=== PATIENT | female | born 1940 | race Caucasian/White ===

== ENCOUNTER 2016-12-28 17:27 | Emergency (ER) | payer MEDICARE ==
[2012-06-23 13:18] VITALS: BMI 29.9
[2016-12-28 18:24] LABS: APPEARANCE CLEAR (CLEAR); BILIRUBIN NEGATIVE (NEGATIVE); COLOR YELLOW (YELLOW); GLUCOSE NEGATIVE (NEGATIVE); KETONE NEGATIVE (NEGATIVE); LEUKOCYTE ESTERASE NEGATIVE (NEGATIVE); NITRITE NEGATIVE (NEGATIVE); PROTEIN NEGATIVE (NEGATIVE); UROBILINOGEN NORMAL (NORMAL)
[2016-12-28 18:56] LABS: BASOPHILS 0.3 % (0-2); EOSINOPHILS 1.9 % (0-7); HEMATOCRIT 39.6 % (36.0-48.0); IMMATURE GRANULOCYTES 0.2 % (0-5); LYMPHOCYTES 23.7 % (15-50); MCH 28.7 pg (26.0-34.0); MCHC 32.8 g/dL (31.0-37.0); MCV 87.4 fL (80.0-100.0); MEAN PLATELET VOLUME 11.6 fL (7.4-10.4); MONOCYTES 6.8 % (2-11); NEUTROPHILS 67.1 % (40-80); PLATELET COUNT 207 10x3/uL (130-400); RBC 4.53 10x6/uL (4.00-5.40); RDW 12.6 % (11.5-14.5); WBC 8.6 10x3/uL (4.8-10.8)
[2016-12-28 19:14] LABS: ALBUMIN 3.7 g/dL (3.4-5.0); ALKALINE PHOSPHATASE 121 U/L (46-116); ALT (SGPT) 27 U/L (10-68); BILIRUBIN - TOTAL 0.56 mg/dL (0.2-1.3); CALC OSMOLALITY 282 mosm/kg (275-300); CALCIUM 8.5 mg/dL (8.5-10.1); CARBON DIOXIDE 28.6 mmol/L (21.0-32.0); CHLORIDE - SERUM 104 mmol/L (98-107); CREATININE - SERUM 1.2 mg/dL (0.6-1.3); PROTEIN - SERUM 7.3 g/dL (6.4-8.2); SODIUM 141 mmol/L (136-145); UREA NITROGEN 18 mg/dL (7-18); eGFR NON AFRICAN AMERICAN 46 mL/min (90-120)
[2016-12-28 19:18] LABS: GLUCOSE 105 mg/dL (74-106)
[2016-12-28 19:27] LABS: CKMB 0.6 U/L (0.0-3.6); CREATINE KINASE 69 UL (21-215); TROPONIN-I < 0.017 ng/mL (0.000-0.060)
== END 2016-12-28 22:25 | disposition home or self-care (01) ==
LOC: D.ER 17:27
PROVIDERS: Nurse Practitioner Acute Care
DX: R42 Dizziness and giddiness (principal); F41.9 Anxiety disorder, unspecified; I25.10 Atherosclerotic heart disease of native coronary artery without angina pectoris; I10 Essential (primary) hypertension; I45.4 Nonspecific intraventricular block

== ENCOUNTER 2017-03-11 07:35 | Outpatient (CLI) | payer MEDICARE ==
[~2017-03-11] VITALS: Ht 165.1 cm; Wt 85.9 kg
--- NOTE | ~2017-03-11 | HEMODYNAMI ---
PATIENT:AD ELDER MEDICAL RECORD: [id number] : 40 LOCATION:[facility] ADMISSION DATE: 03/11/17 Generatedon:03/11/201710:48 Patient name: AD ELDER Patient #: [id number] SSN: : 1940 Date of study: 03/11/2017 Page: Of Hemodynamic Procedure Report Patient Data Patient Demographics Procedure consent was obtained First Name: AD Gender: Female Last Name: JERROD : 1940 [facility] Initial: KODI Age: 76 year(s) Patient #: [id number] Race: Unknown Additional ID: [id number] Contact details Address: [address] [place] [address] State: [place] City: [facility] Zip code: [address] Past Medical History Allergies Allergen Reaction Date Comments Reported Morphine 03/11/2017 Admission Admission Data Admission Date: 03/11/2017 Admission Time: 7:35 Lab Results Lab Result Date: 03/11/2017 Lab Result Time: 0:00 Biochemistry Name Units Result Min Max BUN mg/dl 18 --(---*)-- 7 18 Creatinine mg/dl 1.4 --(----)*- 0.6 1.3 CBC Name Units Result Min Max Hemoglobin g/dl 12 *-(----)-- 13.5 17.5 Procedure Procedure Types Cath Procedure Diagnostic Procedure [facility] w/Coronaries PCI Procedure Coronary Stent Initial Miscellaneous Procedures Moderate Sedation up to 30 minutes Procedure Description Procedure Date Procedure Date: 03/11/2017 Procedure Start Time: 10:20 Procedure End Time: 10:44 Procedure Staff Name Function Stewart Elise MD Performing Physician Theresa Perez RN Nurse Saud Kaur RT Monitor Gaurav Archibald RT Scrub Procedure Data Cath Procedure Fluoroscopy Diagnostic fluoroscopy Total fluoroscopy Time: 4.3 time: 4.3 min min Diagnostic fluoroscopy Total fluoroscopy dose: 594 dose: 594 mGy mGy Contrast Material Contrast Material Type Amount (ml) Isovue 300 99 Entry Location Entry Primary Successful Side Size Upsize Upsize Entry Closure Rosa ccessful Closure Location (Fr) 1 (Fr) 2 (Fr) Remarks Device Remarks Radial Right 6 Fr Mechanical artery Short Compression Diagnostic catheters Device Type Used For End Catheter Placement Diagnostic Terumo 5Fr LV Angiography Tilton 110cm catheter Diagnostic Infinity 5Fr Right Coronary AR MOD Catheter Angiography Procedure Complications No complications Procedure Medications Medication Administration Route Dosage Oxygen NC 2 l/min Heparin Flush Bag added to field 2 bags (1000units/500ml NS) Lidocaine 2% added to field 20 Radial Cocktail added to field 1 syringe (Verapomil 2mg/Nitro 400mcg/Heparin 1500units) Versed I.V. 1 mg Fentanyl I.V. 50 mcg Radial Cocktail I.A. 1 syringe (Verapomil 2mg/Nitro 400mcg/Heparin 1500units) Versed I.V. 0.5 mg Fentanyl I.V. 25 mcg Heparin Bolus I.V. 8500 units Versed I.V. 0.5 mg Fentanyl I.V. 25 mcg Brilinta P.O. 180 mg Hemodynamics Rest HGB: 12 (g/dl) Heart Rate: 67 (bpm) Pressure Samples Time Site Value (mmHg) Purpose Heart Use Rate(bpm) 10:23 LV 71/-7,-6 EDP 93 10:23 LV 78/-1,0 Snapshot 114 10:24 AO 94/47(65) Pullback 74 10:24 LV 116/-6,7 Pullback 74 Gradients Valve Time Site 1 Site 2 Mean SEP/DFP Peak To Heart Use (mmHg) (sec/min) Peak Rate (mmHg) (bpm) Aortic 10:24 LV AO 12 21 22 74 116/-6,7 94/47(65) Calculations Valve P-P Mean Valve Index Valve Source Name Gradient Area Flow (cm2) Aortic 22 12 22 12 Snapshots Pre Cath Intra NCS Post Cath Vital Signs Time Heart Resp SPO2 etCO2 [id number] NIBP (mmHg) Rhythm Pain Sedation Rate (ipm) (%) (mmHg) (mmHg) Status Level (bpm) 10:03:24 65 15 95 0 0 133/68(115) NSR 0 (11) 10(A) , No pain 10:07:44 63 16 98 0 0 134/66(108) NSR 0 (11) 10(A) , No pain 10:12:05 65 18 96 0 0 129/69(109) NSR 0 (11) 10(A) , No pain 10:16:20 64 16 97 0 0 116/62(98) NSR 0 (11) 10(A) , No pain 10:20:30 64 16 96 0 0 108/59(85) NSR 0 (11) 9(A) , No pain 10:24:38 72 16 95 0 0 105/57(69) NSR 0 (11) 9(A) , No pain 10:28:50 74 20 96 0 0 105/54(74) NSR 0 (11) 9(A) , No pain 10:33:02 72 22 95 0 0 104/56(81) NSR 0 (11) 9(A) , No pain 10:37:14 72 18 96 0 0 102/56(75) NSR 0 (11) 10(A) , No pain 10:41:07 76 16 96 0 0 114/65(91) NSR 0 (11) 10(A) , No pain Medications Time Medication Route Dose Verified Delivered Reason Note s Effectiveness by by 10:05:31 Oxygen NC 2 l/min Stewart Theresa Per physician Jitendra Perez RN 10:05:39 Heparin Flush added 2 bags Stewart Stewart used for Bag to Jitendra Elise MD procedure (1000units/500ml field NS) 10:05:48 Lidocaine 2% added 20ml Stewart Stewart used for to vial Jitendra Elise MD procedure field 10:05:56 Radial Cocktail added 1 Stewart Stewart used for (Verapomil to syringe Jitendra Elise MD procedure 2mg/Nitro field 400mcg/Heparin 1500units) 10:13:01 Versed I.V. 1 mg Stewart Theresa for sedation Jitendra Perez RN 10:13:07 Fentanyl I.V. 50 mcg Stewart Theresa for sedation Jitendra Perez RN 10:16:00 Versed I.V. 0.5 mg Stewart Stewart for sedation Jitendra Elise MD 10:16:09 Fentanyl I.V. 25 mcg Stewart Stewart for sedation Jitendra Elise MD 10:19:26 Versed I.V. 0.5 mg Stewart Theresa for sedation Jitendra Perez RN 10:19:33 Fentanyl I.V. 25 mcg Stewart Theresa for sedation Jitendra Perez RN 10:22:38 Radial Cocktail I.A. 1 Stewart Stewart for (Verapomil syringe Jitendra Elise MD vasodilation 2mg/Nitro 400mcg/Heparin 1500units) 10:32:55 Heparin Bolus I.V. 8500 Stewart Theresa for dose units Jitendra Perez RN anticoagulation verified with dr elise 10:40:03 Brilinta P.O. 180 mg Stewart Theresa for Jitendra Perez RN antiplatelet therapy Procedure Log Time Note 9:35:26 Gaurav Archibald RT(R) sent for patient. Start room use. 9:44:31 Time tracking: Regular hours 9:44:35 Plan of Care:Hemodynamics will remain stable., Cardiac rhythm will remain stable., Comfort level will be maintained., Respiratory function will remain adequate., Patient/ family verbilizes understanding of procedure., Procedure tolerated without complication., Recovers from procedure without complications.. 9:56:18 Patient received from Pre/Post Procedure Room to CCL 1 Alert and oriented. Tansferred to table in Supine position. 9:56:20 Warm blankets applied, and ngozi hugger turned on for patient comfort. 9:56:20 Correct patient and procedure confirmed by team. 9:56:21 Signed procedure consent form obtained from patient. 9:56:22 ECG and BP/O2 sat monitors applied to patient. 10:02:11 Vital chart was started 10:02:13 Baseline sample Acquired. 10:02:20 Rhythm: sinus rhythm 10:02:22 Full Disclosure recording started 10:05:31 Oxygen 2 l/min NC was administered by Theresa Perez RN; Per physician; 10:05:39 Heparin Flush Bag (1000units/500ml NS) 2 bags added to field was administered by Stewart Elise MD; used for procedure; 10:05:48 Lidocaine 2% 20ml vial added to field was administered by Stewart Elise MD; used for procedure; 10:05:56 Radial Cocktail (Verapomil 2mg/Nitro 400mcg/Heparin 1500units) 1 syringe added to field was administered by Stewart Elise MD; used for procedure; 10:10:04 H&P Date Dictated: 03/05/2017 Within 30 days and on chart.. 10:10:06 Pre-procedure instructions explained to patient. 10:10:06 Pre-op teaching completed and patient verbalized understanding. 10:10:08 Family in waiting room. 10:10:09 Patient NPO since Midnight. 10:10:36 Patient allergic to Morphine 10:10:41 Is the patient allergic to Iodine/contrast media? No. 10:10:43 Is patient on blood thinner?No 10:10:44 Patient diabetic? No. 10:10:46 ----Pre-sedation anethsthesia assessment.---- 10:10:48 Previous problem with sedation/anesthesia? No ? 10:10:50 Snore? Yes 10:10:54 Sleep apnea? Yes 10:10:57 Deviated septum? No 10:11:00 Opens mouth fully? Yes 10:11:01 Sticks out tongue? Yes 10:11:03 Airway obstruction? No ? 10:11:05 Dentures? No ? 10:11:08 Pre procedure: right dorsailis pedis pulse 1+ Palpable, but thready & weak; easily obliterated 10:11:12 Modified Sumit's test Ulnar > 7 seconds. 10:11:15 Patient pain scale 0/10 ?. 10:11:20 IV patent on arrival in left antecubital with 0.9% NaCl at 10ml/hr. 10:12:04 Lab Result : BUN 18 mg/dl 10:12:04 Lab Result : Hemoglobin 12 g/dl 10:12:04 Lab Result : Creatinine 1.4 mg/dl 10:12:19 Lab results completed and on chart. 10:12:23 Right Radial & Right Groin area was prepped with chlora-prep and draped in sterile fashion 10:12:24 Alarms reviewed by R. N. 10:12:24 Sharps counted by scrub and verified by R.N. 10:12:31 --------ALL STOP TIME OUT------ 10:12:31 Final Timeout: patient, procedure, and site verified with staff and physician. All members of the team are in agreement. 10:12:41 Right Radial & Right Groin site verified by team. 10:12:44 Physical assessment completed. ASA score P 2 - A patient with mild systemic disease as per Stewart Elise MD. 10:12:47 Sedation plan: IV Moderate Sedation Versed, Fentanyl 10:13: Versed 1 mg I.V. was administered by Theresa Perez RN; for sedation; 10:13:07 Fentanyl 50 mcg I.V. was administered by Theresa Perez RN; for sedation; 10::18 Use device set Radial Dx 10:: Acist Syringe opened to sterile field. 10:: Medline Cath Pack opened to sterile field. 10:: Bag Decanter opened to sterile field. 10:: Terumo 6Fr Slender Glidesheath opened to sterile field. 10:: St Lisandro 260cm J .035 wire opened to sterile field. 10:: Acist Hand Control opened to sterile field. 10:: Acist Manifold opened to sterile field. 10:: Tegaderm 4 x 4 opened to sterile field. 10:: MBrace Wrist Support opened to sterile field. 10:16:00 Versed 0.5 mg I.V. was administered by Stewart Elise MD; for sedation; 10:16:09 Fentanyl 25 mcg I.V. was administered by Stewart Elise MD; for sedation; 10:19:26 Versed 0.5 mg I.V. was administered by Theresa Perez RN; for sedation; 10:19:33 Fentanyl 25 mcg I.V. was administered by Theresa Perez RN; for sedation; 10:19:51 Procedure started. 10:20:01 Local anesthetic to right radial artery with Lidocaine 2% by Stewart Elise MD.INITIAL ACCESS ONLY 10:20:08 A 6 Fr Short sheath was inserted into the Right Radial artery 10:22:21 Zero performed for pressure channel P1 10:22:38 Radial Cocktail (Verapomil 2mg/Nitro 400mcg/Heparin 1500units) 1 syringe I.A. was administered by Stewart Elise MD; for vasodilation; 10:22:57 A Diagnostic Terumo 5Fr Tilton 110cm catheter was advanced over the wire and used for LV Angiography. 10:23:01 LV angiography performed. 10:23:02 LV gram done using UGALDE 10:23:04 LV hemodynamics recorded. 10:23:07 Injector settings: Ml/sec: 7, Volume: 15, 10:24:12 EF : 50 % 10:24:28 LCA angiography performed. 10::57 Catheter removed. 10:27:15 A Diagnostic Infinity 5Fr AR MOD Catheter was advanced over the wire and used for Right Coronary Angiography. 10:27:18 RCA angiography performed. 10:29:01 Catheter removed. 10:30:03 ACC PCI Site: dRCA has 80% stenosis. 10:30:05 ACC Pre-intervention ESTELA Flow is 3. 10:30:51 Thompson SCItronic Launcher 6Fr AR 2.0 guide catheter opened to sterile field. 10:30:51 Panasas BasixCompak Inflation Kit opened to sterile field. 10:30:51 High Pressure Extension Tubing (Jitendra) opened to sterile field. 10:30:52 gauzzW Napoleon 2 J-tip 300cm 0.014 guide wir opened to sterile field. 10:31:00 6 Fr AR 2 guide catheter was inserted over the wire 10:32:55 Heparin Bolus 8500 units I.V. was administered by Theresa Perez RN; for anticoagulation; dose verified with dr elise 10:36:26 [employer] TR Band Standard opened to sterile field. 10:36:38 AirsynergyW wire advanced. 10:37:12 Inflation Number: 1 A Thompson SCItronic Integrity 2.75 X 26 stent was prepped and advanced across the Dist RCA. The stent was deployed at 16 AMANDA for 0:16 (min:sec). 10:37:55 Stent catheter was removed intact over wire. 10:38:02 Wire removed. 10:38:03 Guide catheter removed. 10:38:12 Sheath removed intact; hemostasis achieved with Mechanical Compression to the Right Radial artery. 10:38:15 Procedure ended.(Physican Out) 10:38:23 Fluoroscopy time 04.30 minutes. 10:38:28 Flurop Dose total: 594 10:38:28 Fluoroscopy dose: 594 mGy 10:38:31 Contrast amount:Isovue 300 99ml. 10:38:33 Sharps counted by scrub and verified by R.N. 10:38:34 TR band inflated with 14cc of air. 10:39:12 Insertion/operative site no bleeding no hematoma. 10:39:20 Post right radial artery:stable 10:39:21 Post Procedure Pulses reassessed and unchanged 10:39:26 Post procedure rhythm: sinus rhythm 10:39:28 Post procedure instruction explained to patient.Patient verbalizes understanding. 10:40:03 Brilinta 180 mg P.O. was administered by Theresa Perez RN; for antiplatelet therapy; 10:41:13 Procedure type changed to Cath procedure, Diagnostic procedure, LHC, LHC w/Coronaries, PCI procedure, Coronary Stent Initial, Miscellaneous Procedures, Moderate Sedation up to 30 minutes 10:41:17 Procedure and supply charges have been captured, reviewed, submitted and are correct. 10:41:45 Procedure Complication : No complications 10:44:10 Vital chart was stopped 10:44:10 See physician's report for complete and final results. 10:44:13 Report given to Pre/Post Procedure Room. 10:44:17 Patient transfered to Pre/Post Procedure Room with Stretcher. 10:44:19 Procedure ended. 10:44:19 Full Disclosure recording stopped 10:44:26 ACC-PCI Only Patient was given prescriptions, or instructed by Stewart Elise MD to start/continue the following medications upon discharge: Brilinta 10:44:28 End room use (Document Last) Intervention Summary Intervention Notes Time ActionType Lesion and Equipment Action# Pressure Duration Attributes Used 10:37:12 Place stent Dist RCA Medtronic 1 16 00:16 Integrity 2.75 X 26 stent Device Usage Item Name Manufacture Quantity Catalog Hospital Part Current Minimal Lot# / Number Charge Number Stock Stock Serial# Code Acist Acist 1 [id number] 568214 277882 653850 20 Syringe Medical Systems Inc Medline Cardinal 1 [id number] 835704 17641 115974 5 Cath Pack Health Bag Microtek 1 197110 06545 227569 5 Rising Tide Innovations Inc. Terumo 6Fr Terumo 1 [id number] 375035 386116 760019 [address] Lis[address] St Lisandro 1 245589 509816 374173 597261 30 260cm J .035 wire Acist Hand Acist 1 03376 214285 100771 366492 5 Abzena Medical Systems Inc Acist Acist 1 21860 373172 001873 524933 5 Ripple Commerce Medical Systems Inc Tegaderm 4 3M 1 [id number] 752868 758322 809837 5 x 4 MBrace Advanced 1 140-0250-00 946035 44118 537622 5 Wrist Vascular Support Dynamics Diagnostic Terumo 1 13-7497 848330 260310 130113 5 Terumo 5Fr Tilton 110cm catheter Diagnostic Cardinal 1 [id number] 732530 936443 010512 15 Infinity Health 5Fr AR MOD Catheter Medtronic Medtronic 1 [id number] 998030 79175 263125 1 Launcher 6Fr AR 2.0 guide catheter Merit Merit 1 [id number] 103999 004073 369351 15 [employer] Medical Inflation Kit High Merit 1 [id number] 852785 54227 374750 10 Pressure Medical Extension Tubing (Elise) Vasquez BMW Vasquez 1 [id number] 457371 792036 499101 5 Napoleon 2 Vascular J-tip 300cm 0.014 guide wir Terumo TR Terumo 1 [id number] 578506 207485 153195 40 Band Standard Medtronic Medtronic 1 [id number] 560340 358260 5 [id number] Integrity 2.75 X 26 stent Signature Audit [place] Stage Time Signature Unsigned Intra-Procedure 03/11/2017 Saud Kaur 10:48:24 AM RT(R) Signatures Monitor : Saud Kaur RT Signature : Date : Time : [id number] [place] [address]
[2017-03-11] MEDS ORDERED: LIPITOR20 MG PO (08:07)
[2017-03-11] MEDS ORDERED: METOPROLOL TART25 MG (08:11)
[2017-03-11] MEDS ORDERED: ISORDIL5 MG PO (08:11)
[2017-03-11] MEDS ORDERED: NORVASC5 MG PO (08:11)
[2017-03-11] MEDS ORDERED: PROBIOTIC1 EAC1 PO (08:12)
[2017-03-11] MEDS ORDERED: BAYER CHEWABLE81 MG PO (08:12)
[2017-03-11] MEDS ORDERED: OMEPRAZOLE20 M1 PO (08:12)
[2017-03-11] MEDS ORDERED: ATIVAN1 MG PO (08:13)
[2017-03-11] MEDS ORDERED: CYMBALTA30 MG PO (08:13)
[2017-03-11 08:15] VITALS: BP 133/68; Ht 165.1 cm; Wt 85.9 kg
[2017-03-11 08:28] LABS: BASOPHILS 0.3 % (0-2); EOSINOPHILS 2.6 % (0-7); HEMATOCRIT 36.6 % (36.0-48.0); IMMATURE GRANULOCYTES 0.3 % (0-5); LYMPHOCYTES 22.9 % (15-50); MCH 28.9 pg (26.0-34.0); MCHC 32.8 g/dL (31.0-37.0); MCV 88.2 fL (80.0-100.0); MONOCYTES 7.5 % (2-11); NEUTROPHILS 66.4 % (40-80); PLATELET COUNT 194 10x3/uL (130-400); RBC 4.15 10x6/uL (4.00-5.40); WBC 7.3 10x3/uL (4.8-10.8)
[2017-03-11 08:46] LABS: ANION GAP 11.3 mmol/L (8-16); CALCIUM 8.4 mg/dL (8.5-10.1); CARBON DIOXIDE 26.8 mmol/L (21.0-32.0); CREATININE - SERUM 1.4 mg/dL (0.6-1.3); POTASSIUM - SERUM 4.1 mmol/L (3.5-5.1)
--- NOTE | 2017-03-11 11:04 | NUR ---
1055 RECEIVED PT FROM PAN WASHER, PT IS SLEEPING, AWAKENS TO VERBAL STIMULI. DENIES ANY C/O. TR ABDN CDI, NO BLEEDING OR HEMATOMA NOTED. FINGERS WARM TO TOUCH. SINUS RHYTHM, DENIES ANY C/O CHEST DISCOMFORT. CALL LIGHT IN REACH, PT INSTRUCTED TO CALL FOR NEEDS.
[2017-03-11] MEDS ORDERED: BRILINTA90 MG PO (11:26)
--- NOTE | 2017-03-11 11:30 | NUR ---
1110 PT DENIES ANY C/O. SINUS RHYTHM, VSS. TR BAND CDI, NO BLEEDING OR HEMATOMA NOTED. CALL LIGHT IN REACH.
--- NOTE | 2017-03-11 12:25 | NUR ---
RESTING QUIETLY WITH EYES CLOSED NO DISTRESS NOTED. VSS WITH CHEST PAIN DENIED. TR BAND TO R/WRIST CDI NO BLEEDING NO HEMATOMA NOTED.
--- NOTE | 2017-03-11 12:48 | NUR ---
1245 TR BAND CDI, NO BLEEDING OR HEMATOMA NOTED. FINGERS WARM TO TOUCH, PT DENIES [place] DEFICIT. VSS. DAUGHTER AT BEDSIDE.
--- NOTE | 2017-03-11 13:40 | NUR ---
1340 PT DENIES ANY C/O. TR BAND CDI, NO BLEEDING OR HEMATOMA NOTED. DAUGHTER AT BEDSIDE.
--- NOTE | 2017-03-11 14:25 | NUR ---
1425 TR BAND DEFLATION UNDERWAY, NO BLEEDING OR HEMATOMA NOTED AT SITE. PT DENIES ANY C/O. DAUGHTER AT BEDSIDE.
--- NOTE | 2017-03-11 15:13 | NUR ---
1500 TR BAND REMOVED, NO BLEEDING OR HEMATOMA NOTED AT SITE. IV DC'D WTIH CATH INTACT. PT'S DAUGHTER ASSISTING HER WITH DRESSING FOR DC TO HOME.
--- NOTE | 2017-03-11 16:06 | NUR ---
1515 PT HAS AMBULATED TO THE BATHROOM AND VOIDED QS. DENIES ANY C/O. DRESSING TO CATH SITE REMAINS CDI, NO BLEEDING OR HEMATOMA NOTED. DC INSTRUCTIONS REVIEWED WITH PT AND DAUGHTER. STENT CARD, HOMECARE BOOKLET AND BRILINTA PRESCRIPTION TO PATIENT. PT ESCORTED TO PRIVATE AUTO VIA WC BY STAFF WITH DAUGHTER DRIVING HER HOME.
== END 2017-03-11 15:15 | disposition home or self-care (01) ==
LOC: D.CATH 07:35
PROVIDERS: Internal Medicine Cardiovascular Disease
DX: I25.10 Atherosclerotic heart disease of native coronary artery without angina pectoris (principal); I10 Essential (primary) hypertension; E78.5 Hyperlipidemia, unspecified; Z01.812 Encounter for preprocedural laboratory examination

== ENCOUNTER 2017-03-12 23:10 | Emergency (ER) | payer MEDICARE ==
[2017-03-11 08:15] VITALS: BMI 31.5
[~2017-03-12 23:10] MED LIST: ATIVAN1 MG PO; BAYER CHEWABLE81 MG PO; BRILINTA90 MG PO; CYMBALTA30 MG PO; ISORDIL5 MG PO; LIPITOR20 MG PO; METOPROLOL TART25 MG; NORVASC5 MG PO; OMEPRAZOLE20 M1 PO; PROBIOTIC1 EAC1 PO
== END 2017-03-12 23:59 | disposition home or self-care (01) ==
LOC: D.ER 23:10
DX: Z03.89 Encounter for observation for other suspected diseases and conditions ruled out (principal); I10 Essential (primary) hypertension; I25.10 Atherosclerotic heart disease of native coronary artery without angina pectoris

== ENCOUNTER 2018-02-18 22:32 | Emergency (ER) | payer MEDICARE ==
[~2018-02-18] VITALS: Ht 165.1 cm; Wt 90.9 kg
[2018-02-18 23:00] VITALS: BP 141/66; Ht 165.1 cm; Wt 90.9 kg
== END 2018-02-19 00:35 | disposition left against medical advice (07) ==
LOC: D.ER 22:32
DX: S89.91XA Unspecified injury of right lower leg, initial encounter (principal); V19.3XXA Pedal cyclist (driver) (passenger) injured in unspecified nontraffic accident, initial encounter; Y93.55 Activity, bike riding; Y92.410 Unspecified street and highway as the place of occurrence of the external cause

== ENCOUNTER → 2018-02-22 13:40 | Outpatient (CLI) | payer MEDICARE ==
[2018-02-18 23:00] VITALS: BMI 33.3
== END | disposition home or self-care (01) ==
LOC: D.LAB 13:00
DX: S09.8XXA Other specified injuries of head, initial encounter (principal); X58.XXXA Exposure to other specified factors, initial encounter; B96.81 Helicobacter pylori [H. pylori] as the cause of diseases classified elsewhere

== ENCOUNTER → 2019-06-22 09:07 | Outpatient (CLI) | payer MEDICARE ==
[2018-02-18 23:00] VITALS: BMI 33.3
[~2019-06-22 09:07] MED LIST changes: +MULTI-DAY VITAM1 TAB PO; +OMEGA-3100 MG PO; +RANITIDINE HCL150 M1 PO; +VITAMIN D31000 UNIT PO
== END | disposition home or self-care (01) ==
LOC: D.HCCARDIO 09:07
PROVIDERS: ATTEND Internal Medicine Cardiovascular Disease
DX: I25.10 Atherosclerotic heart disease of native coronary artery without angina pectoris (principal)

== ENCOUNTER 2019-07-03 11:37 | Outpatient (CLI) | payer MEDICARE ==
[~2019-07-03] VITALS: Ht 165.1 cm; Wt 78.6 kg
--- NOTE | ~2019-07-03 | HEMODYNAMI ---
PATIENT:AD ELDER MEDICAL RECORD: [id number] : 40 LOCATION:[facility] ADMISSION DATE: 07/03/19 Generatedon:07/03/201915:26 Patient name: AD ELDER Patient #: [id number] SSN: [id number] : 1940 Date of study: 07/03/2019 Page: Of Hemodynamic Procedure Report Patient Data Patient Demographics Procedure consent was obtained First Name: AD Gender: Female Last Name: JERROD : 1940 Middle Initial: KODI Age: 78 year(s) Patient #: [id number] Race: SSN: [id number] Additional ID: [id number] Contact details Address: [address] [place] [address] State: [place] City: [facility] [place] Zip code: [address] Past Medical History Allergies Allergen Reaction Date Comments Reported Morphine 03/11/2017 Admission Admission Data Admission Date: 07/03/2019 Admission Time: 11:37 Arrival Date: 07/03/2019 Arrival Time: 0:00 Admit Source: Other Insurance Payor: Medicare [facility] #: [id number] Height (in.): 64.96 BSA: 1.86 (m2) Height (cm.): 165 BMI: 29.02 (kg/m2) Weight (lbs.): 174.17 Weight (kg.): 79 Lab Results Lab Result Date: 07/03/2019 Lab Result Time: 0:00 Biochemistry Name Units Result Min Max BUN mg/dl 28 --(----)-* 7 18 Creatinine mg/dl 1.5 --(----)-* 0.6 1.3 eGFR ml/min 35 *-(----)-- 90 120 NONAFRICAN CBC Name Units Result Min Max Hemoglobin g/dl 13.2 -*(----)-- 13.5 17.5 Procedure Procedure Types Cath Procedure Diagnostic Procedure LHC LH w/Coronaries Sedation Charges Moderate Sedation up to 15 minutes Procedure Description Procedure Date Procedure Date: 07/03/2019 Procedure Start Time: 15:05 Procedure End Time: 15:22 Procedure Staff Name Function Stewart Ham MD Performing Physician Sharmaine Vazquez RT Monitor Anabel Villa RT Monitor Valeriy Parikh RN Nurse Anita Orr RT Scrub Indication CAD Procedure Data Cath Procedure Fluoroscopy Diagnostic fluoroscopy Total fluoroscopy Time: 2.9 time: 2.9 min min Diagnostic fluoroscopy Total fluoroscopy dose: 457 dose: 457 mGy mGy Contrast Material Contrast Material Type Amount (ml) Isovue 300 63 Entry Location Entry Primary Successful Side Size Upsize Upsize Entry Closure Rosa ccessful Closure Location (Fr) 1 (Fr) 2 (Fr) Remarks Device Remarks Radial Right 6 Fr Mechanical artery Short Compression Estimated blood loss: 5 ml Diagnostic catheters Device Type Used For End Catheter Placement DIAGNOSTIC [place] 110cm 5 Procedure Fr catheter ([id number]) DIAGNOSTIC AR1 MOD 5Fr Procedure catheter ([id number]) Procedure Complications No complications Procedure Medications Medication Administration Route Dosage 0.9% NaCl I.V. 100 ml/hr Oxygen etCO2 Nasal cannula 2 l/min Heparin Flush Bag added to field 2 bags (1000units/500ml NS) Lidocaine 2% added to field 20 Radial Cocktail added to field 1 syringe (Verapamil 2mg/Nitro 400mcg/Heparin 1500units) Versed I.V. 1 mg Fentanyl I.V. 25 mcg Fentanyl I.V. 25 mcg Radial Cocktail I.A. 1 syringe (Verapamil 2mg/Nitro 400mcg/Heparin 1500units) Benadryl I.V. 50 mg Hemodynamics Rest BSA: 1.86 (m2) HGB: 13.2 (g/dl) O2 Consumption: Estimated: 160.52 (ml/min) O2 Co nsumption indexed: Estimated:86.3 (ml/min/m) Heart Rate: 59 (bpm) Pressure Samples Time Site Value (mmHg) Purpose Heart Use Rate(bpm) 15:09 LV 115/0,7 Snapshot 87 15:10 AO 113/48(75) Pullback 79 15:10 LV 120/-7,9 Pullback 79 Gradients Valve Time Site 1 Site 2 Mean SEP/DFP Peak To Heart Use (mmHg) (sec/min) Peak Rate (mmHg) (bpm) Aortic 15:10 LV AO 9 17 7 79 120/-7,9 113/48(75) Calculations Valve P-P Mean Valve Index Valve Source Name Gradient Area Flow (cm2) Aortic 7 9 7 9 Snapshots Pre Cath Intra NCS Post Cath Vital Signs Time Heart Resp SPO2 etCO2 NIBP (mmHg) Rhythm Pain Sedation Rate (ipm) (%) (mmHg) Status Level (bpm) 14:53:58 59 14 100 29.9 154/67(129) NSR 0 (11) 10(A) , No pain 14:58:18 67 14 100 21.7 155/79(125) NSR 0 (11) 10(A) , No pain 15:02:40 68 13 100 21.7 142/70(117) NSR 0 (11) 10(A) , No pain 15:07:00 70 15 100 33.7 138/73(114) NSR 0 (11) 10(A) , No pain 15:11:14 73 15 99 32.9 119/62(98) NSR 0 (11) 9(A) , No pain 15:15:30 76 18 97 37.4 113/61(84) NSR 0 (11) 10(A) , No pain 15:19:44 72 15 99 26.2 117/60(99) NSR 0 (11) 10(A) , No pain Medications Time Medication Route Dose Verified Delivered Reason Notes Effectiveness by by 14:55:50 0.9% NaCl I.V. 100 Valeriy Valeriy Per ml/hr Kati Parikh physician RN RN 14:56:00 Oxygen etCO2 2 l/min Valeriy Valeriy for low 02 Nasal Lorigan Lorigan sats cannula RN RN 14:56:12 Heparin Flush added 2 bags Valeriy Valeriy used for Bag to Lorigan Loranne procedure (1000units/500ml field RN RN NS) 14:56:23 Lidocaine 2% added 20ml Valeriy Valeriy for local to vial Lorigan Lorigan anesthetic RN RN 14:56:34 Radial Cocktail added 1 Valeriy Valeriy used for (Verapamil to syringe Lorigan Lorigan procedure 2mg/Nitro RN RN 400mcg/Heparin 1500units) 15:00:32 Benadryl I.V. 50 mg Valeriy Valeriy Per Kati Parikh physician RN RN 15:02:44 Versed I.V. 1 mg Valeriy Valeriy for sedation Kati Parikh RN RN 15:02:53 Fentanyl I.V. 25 mcg Valeriy Valeriy for sedation Kati Parikh RN RN 15:05:29 Fentanyl I.V. 25 mcg Valeriy Valeriy for sedation Kati Parikh RN RN 15:08:49 Radial Cocktail I.A. 1 Valeriy Stewart for (Verapamil syringe Kati Ham MD vasodilation 2mg/Nitro RN 400mcg/Heparin 1500units) Procedure Log Time Note 14:06:35 Informed consent obtained and on chart 14:07:34 Indication : CAD 14:11:13 Lab Result : Hemoglobin 13.2 g/dl 14:11:13 Lab Result : eGFR NONAFRICAN 35 ml/min 14:11:13 Lab Result : BUN 28 mg/dl 14:11:13 Lab Result : Creatinine 1.5 mg/dl 14:14:09 Arrival Date: 07/03/2019 12:00:00 AM 14:14:31 Admit Source: Other 14:14:37 Insurance Payor : Medicare 14:14:43 Patient Height : 64.96 inches 14:14:49 Patient Weight : 174.17 lbs 14:17:56 Risk of Mortality: .1 14:18:03 Risk of blood transfusion: 0.8 14:18:09 Risk of [place]: 1.6 14:18:22 ACC Patient presents with Stable Angina CCS Anginal Class 2--Slight limitation of ordinary activity. 14:20:17 ACCPatient has been prescribed/administered the following anti-anginal medication within the last 2 weeks: None 14:35:29 Procedure Status Elective Heart Cath (OP). 14:35:33 Valeriy Parikh RN sent for patient. Start room use. 14:35:36 Time tracking: Regular hours (M-F 7:00 - 5:00) 14:35:44 Plan of Care:Hemodynamics will remain stable., Cardiac rhythm will remain stable., Comfort level will be maintained., Respiratory function will remain adequate., Patient/ family verbilizes understanding of procedure., Procedure tolerated without complication., Recovers from procedure without complications.. 14:41:13 Patient received from Pre/Post Procedure Room to CCL 1 Alert and oriented. Tansferred to table in Supine position. 14:52:43 Warm blankets applied, and ngozi hugger turned on for patient comfort. 14:52:43 Correct patient and procedure confirmed by team. 14:52:44 ECG and BP/O2 sat monitors applied to patient. 14:52:44 Vital chart was started 14:52:47 Baseline sample Acquired. 14:52:51 Rhythm: sinus rhythm 14:52:53 Full Disclosure recording started 14:53:03 H&P Date Dictated: 07/03/2019 Within 30 days and on chart., H&P Addendum completed by physician on day of procedure. (MUST COMPLETE FOR ALL OUTPATIENTS). 14:53:09 Pre-procedure instructions explained to patient. 14:53:09 Pre-op teaching completed and patient verbalized understanding. 14:53:11 Family in patients room. 14:53:13 Patient NPO since Midnight. 14:53:15 Is the patient allergic to Iodine/contrast media? No. 14:53:16 Was the patient premedicated? Yes 14:53:17 Is patient on blood thinner?No 14:53:19 Patient diabetic? No. 14:53:22 Previous problem with sedation/anesthesia? No ? 14:53:27 Snore? Yes 14:53:28 Sleep apnea? Yes 14:53:29 Deviated septum? No 14:53:29 Opens mouth fully? Yes 14:53:30 Sticks out tongue? Yes 14:53:32 Airway obstruction? No ? 14:53:35 Dentures? No ? 14:54:10 Pre procedure: right dorsailis pedis pulse 1+ Palpable, but thready & weak; easily obliterated 14:54:12 Pre procedure: left dorsailis pedis pulse 1+ Palpable, but thready & weak; easily obliterated 14:54:14 Patient pain scale 0/10 ?. 14:54:23 IV patent on arrival in left forearm with 0.9% NaCl at KVO. 14:54:27 Lab results completed and on chart. 14:55:04 Right Radial & Right Groin area was prepped with chlora-prep and draped in sterile fashion 14:55:06 Alarms reviewed by R. N. 14:55:07 Sharps counted by scrub and verified by R.N. 14:55:47 Stress Test: yes; abnormal anterior and apical 14:55:50 0.9% NaCl 100 ml/hr I.V. was administered by Valeriy Parikh RN; Per physician; Verbal order read back and verified. 14:56:00 Oxygen 2 l/min etCO2 Nasal cannula was administered by Valeriy Parikh RN; for low 02 sats; Verbal order read back and verified. 14:56:12 Heparin Flush Bag (1000units/500ml NS) 2 bags added to field was administered by Valeriy Parikh RN; used for procedure; Verbal order read back and verified. 14:56:23 Lidocaine 2% 20ml vial added to field was administered by Valeriy Parikh RN; for local anesthetic; Verbal order read back and verified. 14:56:34 Radial Cocktail (Verapamil 2mg/Nitro 400mcg/Heparin 1500units) 1 syringe added to field was administered by Valeriy Parikh RN; used for procedure; Verbal order read back and verified. 14:56:51 Use device set Radial Dx or PCI 14:56:53 ACIST Syringe (00661) opened to sterile field. 14:56:54 Medline Cath Pack ([id number]) opened to sterile field. 14:56:55 Bag Decanter (2002S) opened to sterile field. 14:56:56 ACIST Hand Control (51026) opened to sterile field. 14:56:57 ACIST Manifold (20871) opened to sterile field. 14:56:58 Tegaderm 4 x 4 (1626W) opened to sterile field. 14:56:59 MBrace Wrist Support ([id number]) opened to sterile field. 14:57:00 NEEDLE Cook 21G 4cm Radial (O69342) opened to sterile field. 14:57:01 SHEATH 6FR RAIN (7624685) opened to sterile field. 14:57:04 EMERALD Guide Wire (692-206) opened to sterile field. 14:57:22 Physician arrived 14:57:24 --------ALL STOP TIME OUT------ 14:57:25 Final Timeout: patient, procedure, and site verified with staff and physician. All members of the team are in agreement. 14:57:33 Right Radial & Right Groin site verified by team. 14:57:40 Fire Safety Assessment: A--An alcohol-based skin anteseptic being used preoperatively., C--Open oxygen or nitrous oxide is being used., D--An ESU, laser, or fiber-optic light is being used. 14:57:45 Physical assessment completed. ASA score P 2 - A patient with mild systemic disease as per Stewart Ham MD. 14:57:58 3b) 30-44 Moderately reduced kidney function. 14:58:05 Maximum allowable contrast dose (3.7 X eGFR X 0.75)97 ml. 14:58:11 Sedation plan: IV Moderate Sedation Medication:Versed, Fentanyl 15:00:32 Benadryl 50 mg I.V. was administered by Valeriy Parikh RN; Per physician; Verbal order read back and verified. 15:00:49 Zero performed for pressure channel P1 15:02:44 Versed 1 mg I.V. was administered by Valeriy Parikh RN; for sedation; Verbal order read back and verified. 15:02:53 Fentanyl 25 mcg I.V. was administered by Valeriy Parikh RN; for sedation; Verbal order read back and verified. 15:04:42 Procedure started. 15:05:03 Local anesthetic to right radial artery with Lidocaine 2% by Stewart Ham MD.INITIAL ACCESS ONLY 15:05:29 Fentanyl 25 mcg I.V. was administered by Valeriy Parikh RN; for sedation; Verbal order read back and verified. 15:07:56 A 6 Fr Short sheath was inserted into the Right Radial artery 15:08:45 A DIAGNOSTIC [place] 110cm 5 Fr catheter ([id number]) was advanced over the wire and used for Procedure. 15:08:49 Radial Cocktail (Verapamil 2mg/Nitro 400mcg/Heparin 1500units) 1 syringe I.A. was administered by Stewart Ham MD; for vasodilation; Verbal order read back and verified. 15:09:22 LV angiography performed. 15:09:27 LV gram done using UGALDE 15:09:58 LV hemodynamics recorded. 15:10:19 EF : 50 % 15:11:07 Injector settings: Ml/sec: 5, Volume: 15, 15:11:12 LCA angiography performed. 15:11:30 Injector settings: Ml/sec: 3, Volume: 5, 15:13:08 Catheter removed. 15:14:01 A DIAGNOSTIC AR1 MOD 5Fr catheter ([id number]) was advanced over the wire and used for Procedure. 15:15:10 RCA angiography performed. 15:15:14 Injector settings: Ml/sec: 3, Volume: 5, 15:16:44 Catheter removed. 15:17:01 TR BAND Standard ([id number]) opened to sterile field. 15:17:16 Procedure ended.(Physican Out) 15:17:47 Sheath removed intact; hemostasis achieved with Mechanical Compression to the Right Radial artery. 15:17:58 Contrast amount:Isovue 300 63ml. 15:18:02 Maximum allowable dose exceeded? No. 15:18:20 Fluoroscopy time 02.90 minutes. 15:18:28 Fluoroscopy dose: 457 mGy 15:18:28 Flurop Dose total: 457 15:18:37 Dose Area Product 15225 mGy/cm. 15:18:41 Sharps counted by scrub and verified by R.N. 15:18:48 [place] band inflated with 8cc of air. 15:18:53 Insertion/operative site no bleeding no hematoma. 15:19:05 Post right radial artery:stable 15:19:08 Post Procedure Pulses reassessed and unchanged 15:19:13 Post-procedure physical assessment completed. ASA score P 2 - A patient with mild systemic disease as per Stewart Ham MD. 15:19:23 Post procedure rhythm: unchanged. 15:19:30 Estimated blood loss: 5 ml 15:19:34 Post procedure instruction explained to patient.Patient verbalizes understanding. 15:19:35 Patient needs reinforcement of post procedure teaching. 15:21:10 Procedure type changed to Cath procedure, Diagnostic procedure, LHC, C w/Coronaries, Sedation Charges, Moderate Sedation up to 15 minutes 15:21:15 Procedure and supply charges have been captured, reviewed, submitted and are correct. 15:22:22 Procedure Complication : No complications 15:22:27 Vital chart was stopped 15:22:33 [facility] Findings: mild to moderate CAD (<70%) 15:22:35 Operative report dictated upon procedure completion. 15:22:36 See physician's report for complete and final results. 15:22:39 Report given to Pre/Post Procedure Room. 15:22:43 Patient transfered to Pre/Post Procedure Room with Stretcher. 15:22:49 Procedure ended. 15:22:49 Full Disclosure recording stopped 15:22:53 End room use (Document Last) 15:22:54 End room use (Document Last) Device Usage Item Name Manufacture Quantity Catalog Hospital Part Current Minima l Lot# / Number Charge Number Stock Stock Serial# Code ACIST Acist 1 13375 806579 737550 689246 20 Syringe Medical (59394) Systems Inc Medline Medline 1 [id number] 984918 65347 633742 5 Cath Pack ([id number]) Bag Microtek 1 2001S 403494 32937 086607 5 Decanter Medical Inc. () ACIST Hand Acist 1 00072 645349 965697 845751 5 Control Medical (07673) Systems Inc ACIST Acist 1 45542 572460 261655 324273 5 Manifold Medical (60856) Systems Inc Tegaderm 4 3M 1 1626W 978380 625167 296227 5 x 4 (1626W) MBrace Advanced 1 140-0250-00 182367 13397 658010 5 Wrist Vascular Support Dynamics ([id number]) NEEDLE [employer] [facility] [place] Medical 1 [id number] 275157 508255 857344 5 21G 4cm Radial (U23002) SHEATH 6FR Cardinal 1 [id number] 259523 1225101 023489 5 [facility] (8811760) EMERALD Cardinal 1 502-455 403011 444307 499913 5 Guide Wire Health (502-455) DIAGNOSTIC Terumo 1 40-5013 724698 452248 350432 5 [place] 110cm 5 Fr catheter (394738) DIAGNOSTIC Cardinal 1 [id number] 693820 903976 882025 15 AR1 MOD 5Fr Health catheter (073050K) TR BAND Terumo 1 [id number] 374985 677691 964270 40 Standard ([id number]) Signature Audit Myton Stage Time Signature Unsigned Intra-Procedure 07/03/2019 Anabel 3:25:22 PM Daisy RT(R) (CV) Intra-Procedure 07/03/2019 Valeriy 3:25:51 PM Kati SUBRAMANIAN Intra-Procedure 07/03/2019 Stewart Ham MD 3:26:[address] [address]
[~2019-07-03 11:37] MED LIST changes: -MULTI-DAY VITAM1 TAB PO; -OMEGA-3100 MG PO; -RANITIDINE HCL150 M1 PO; -VITAMIN D31000 UNIT PO
[2019-07-03] MEDS ORDERED: RANITIDINE HCL150 M1 PO (12:00)
[2019-07-03] MEDS ORDERED: MULTI-DAY VITAM1 TAB PO (12:01)
[2019-07-03] MEDS ORDERED: OMEGA-3100 MG PO (12:01)
[2019-07-03] MEDS ORDERED: VITAMIN D31000 UNIT PO (12:01)
[2019-07-03 12:09] VITALS: BP 142/65; Ht 165.1 cm; Wt 78.6 kg
[2019-07-03 12:19] LABS: BASOPHILS 0.3 % (0-2); EOSINOPHILS 2.5 % (0-7); HEMATOCRIT 39.4 % (36.0-48.0); HEMOGLOBIN 13.2 g/dL (12-16); IMMATURE GRANULOCYTES 0.1 % (0-5); LYMPHOCYTES 22.6 % (15-50); MCH 28.8 pg (26.0-34.0); MCHC 33.5 g/dL (31.0-37.0); MCV 85.8 fL (80.0-100.0); MEAN PLATELET VOLUME 10.4 fL (7.4-10.4); MONOCYTES 6.3 % (2-11); NEUTROPHILS 68.2 % (40-80); RBC 4.59 10x6/uL (4.00-5.40); RDW 13.5 % (11.5-14.5); WBC 6.8 10x3/uL (4.8-10.8)
[2019-07-03 12:24] LABS: PLATELET COUNT 286 10x3/uL (130-400)
[2019-07-03 12:38] LABS: ANION GAP 11.3 mmol/L (8-16); CALCIUM 8.7 mg/dL (8.5-10.1); CARBON DIOXIDE 29.6 mmol/L (21.0-32.0); CREATININE - SERUM 1.5 mg/dL (0.6-1.3); LDL-HDL RATIO 0.8 ratio (1.5-3.5); POTASSIUM - SERUM 3.9 mmol/L (3.5-5.1)
--- NOTE | 2019-07-03 15:30 | NUR ---
PT RECEIVED VIA STRETCHER FROM [employer] AND TRANSPORT MECHANIC FOR RECOVERY. PT AWAKE, SLIGHTLY DROWSY. PT PLACED ON CARDIAC MONITORS, HR NSR, RATE 67, BP 127/63, O2 SAT 98 ON RA, RR 15. ZYPHER BAND AND IMMOBILIZER IN PLACE TO R WRIST, DRESSING CDI NO BLEEDING OR HEMATOMA NOTED. ARM PINK AND WARM, CAP REFILL PRESENT. PT C/O BEING COLD, WARM BLANKETS GIVEN. IV PATENT INFUSING VIA ORDERS. HOB ELEVATED SLIGHTLY PER PT REQUEST, COFFEE GIVEN. CALL LIGHT IN REACH, FAMILY AT BEDSIDE
--- NOTE | 2019-07-03 16:00 | NUR ---
PT SITTING UP IN BED DRINKING COFFEE, VISITING W FAMILY. Z BAND AND IMMOBILIZER IN PLACE, DRESSING CDI NO BLEEDING OR HEMATOMA NOTED. CAP REFILL BRISK. VSS. CALL LIGHT IN REACH. PT DENIES PAIN OR NEEDS AT THIS TIME
--- NOTE | 2019-07-03 16:45 | NUR ---
PT RESTING COMFORTABLY, 3CC AIR REMOVED FROM ZBAND W/O BLEEDING NOTED. ARM PINK AND WARM, CAP REFILL BRISK. VSS. PT GIVEN SANDWICH TRAY. PT DENIES PAIN OR DISCOMFORT, FAMILY AT BEDSIDE, CALL LIGHT IN REACH
--- NOTE | 2019-07-03 17:15 | NUR ---
PT RESTING W EYES CLOSED. DENIES PAIN OR NEEDS. 3 ADD'L CC AIR REMOVED FROM Z BAND, NO BLEEDING OR SWELLING NOTED. CALL LIGHT IN REACH
--- NOTE | 2019-07-03 17:35 | NUR ---
DISCHARGE INSTRUCTIONS REVIEWED W PT , SHE VERBALIZED UNDERSTANDING. IV REMOVED W CATH INTACT, CARDIAC MONITORS REMOVED AND PT UP TO DRESS FOR DISCHARGE.174 PT AMBULATED TO BR W ASSIST, VOIDING W/O DIFFICULITY.
--- NOTE | 2019-07-03 17:50 | NUR ---
Z BAND REMOVED AND REMAINING AIR W/O BLEEDING. 2X2 AND TEGADERM DRESSING APPLIED. PT DISCHARGED VIA WC TO SON WAITING IN PRIVATE VEHICLE. PT HAD ALL BELONGINGS AND DISCHARGE INSTRUCTIONS
== END 2019-07-03 17:45 | disposition home or self-care (01) ==
LOC: D.CATH 11:37
PROVIDERS: ATTEND Internal Medicine Cardiovascular Disease
DX: I25.119 Atherosclerotic heart disease of native coronary artery with unspecified angina pectoris (principal); R94.30 Abnormal result of cardiovascular function study, unspecified

== ENCOUNTER → 2020-04-16 10:13 | Outpatient (CLI) | payer MEDICARE ==
[2019-07-03 12:09] VITALS: BMI 28.8
[~2020-04-16 10:13] MED LIST changes: +MULTI-DAY VITAM1 TAB PO; +OMEGA-3100 MG PO; +RANITIDINE HCL150 M1 PO; +VITAMIN D31000 UNIT PO
== END | disposition home or self-care (01) ==
LOC: D.HCCARDIO 10:13
PROVIDERS: ATTEND Internal Medicine Cardiovascular Disease
DX: I25.10 Atherosclerotic heart disease of native coronary artery without angina pectoris (principal)

== ENCOUNTER 2020-12-15 17:49 | Observation (INO) | payer OTHER ==
[~2020-12-15] VITALS: Ht 165.1 cm; Wt 77.1 kg
[2020-12-15 18:34] LABS: BASOPHILS 0.4 % (0-2); EOSINOPHILS 2.7 % (0-7); HEMATOCRIT 34.2 % (36.0-48.0); HEMOGLOBIN 11.4 g/dL (12-16); IMMATURE GRANULOCYTES 0.2 % (0-5); LYMPHOCYTE ABS# 2.35 10x3/uL (1.18-3.74); LYMPHOCYTES 23.6 % (15-50); MCH 28.6 pg (26.0-34.0); MCHC 33.3 g/dL (31.0-37.0); MCV 85.7 fL (80.0-100.0); MEAN PLATELET VOLUME 10.7 fL (7.4-10.4); NEUTROPHIL ABS# 6.66 10x3/uL (1.56-6.13); NEUTROPHILS 67.1 % (40-80); PLATELET COUNT 219 10x3/uL (130-400); RBC 3.99 10x6/uL (4.00-5.40); RDW 12.4 % (11.5-14.5); WBC 9.9 10x3/uL (4.8-10.8)
[2020-12-15 18:39] LABS: APTT 24.1 SECONDS (22.8-39.4); INR 1.08 (0.85-1.17)
[2020-12-15 18:40] LABS: CALC OSMOLALITY 276 mosm/kg (275-300); CALCIUM 8.6 mg/dL (8.5-10.1); CARBON DIOXIDE 22.5 mmol/L (21.0-32.0); CHLORIDE - SERUM 98 mmol/L (98-107); CREATININE - SERUM 2.4 mg/dL (0.6-1.3); GLUCOSE 127 mg/dL (74-106); POTASSIUM - SERUM 4.7 mmol/L (3.5-5.1); SODIUM 131 mmol/L (136-145); UREA NITROGEN 47 mg/dL (7-18); eGFR NON AFRICAN AMERICAN 21 mL/min (90-120)
[2020-12-15 18:57] LABS: ALBUMIN 3.8 g/dL (3.4-5.0); ALKALINE PHOSPHATASE 89 U/L (30-120); ALT (SGPT) 28 U/L (10-68); BILIRUBIN - TOTAL 0.65 mg/dL (0.2-1.3); CKMB 1.2 U/L (0.0-3.6); CREATINE KINASE 84 UL (21-215); MAGNESIUM - SERUM 1.8 mg/dL (1.8-2.4); PRO BNP 211 pg/mL (0-450); PROTEIN - SERUM 7.2 g/dL (6.4-8.2); TROPONIN-I < 0.017 ng/mL (0.000-0.060)
[2020-12-15 19:14] VITALS: BP 138/47
[2020-12-15] MEDS ORDERED: VALSARTAN-HCTZ1 EAC3 PO (22:58)
[2020-12-15] MEDS ORDERED: PROBIOTIC1 EAC1 PO (23:01)
--- NOTE | 2020-12-15 23:02 | NUR ---
PATIENT STATES OKAY TO CONTACT RENO VALDEZ [phone] WITH UPDATES, PLAN OF CARE.
[2020-12-16 02:29] VITALS: BP 112/44; BMI 28.3
--- NOTE | 2020-12-16 05:44 | NUR ---
PATIENT BP READING LOW ON ELECTRONIC BP MACHINE. RECHECKED MANUALLY FOR BP OF 102/58. DENIES DIZZINESS. REPORTS INTERMITTENT PAIN ON RIGHT SHOULDER, RIGHT SIDE OF NECK.
[2020-12-16 07:37] LABS: BASOPHILS 0.4 % (0-2); HEMATOCRIT 31.7 % (36.0-48.0); HEMOGLOBIN 10.4 g/dL (12-16); IMMATURE GRANULOCYTES 0.3 % (0-5); LYMPHOCYTE ABS# 1.64 10x3/uL (1.18-3.74); LYMPHOCYTES 23.2 % (15-50); MCHC 32.8 g/dL (31.0-37.0); MCV 85.2 fL (80.0-100.0); MEAN PLATELET VOLUME 11.2 fL (7.4-10.4); MONOCYTES 7.2 % (2-11); NEUTROPHIL ABS# 4.65 10x3/uL (1.56-6.13); NEUTROPHILS 65.9 % (40-80); PLATELET COUNT 197 10x3/uL (130-400); RBC 3.72 10x6/uL (4.00-5.40); RDW 12.2 % (11.5-14.5)
[2020-12-16 07:55] LABS: ALBUMIN 3.4 g/dL (3.4-5.0); ANION GAP 13.3 mmol/L (8-16); BILIRUBIN - TOTAL 0.57 mg/dL (0.2-1.3); CALCIUM 8.1 mg/dL (8.5-10.1); CARBON DIOXIDE 24.5 mmol/L (21.0-32.0); CREATININE - SERUM 2.2 mg/dL (0.6-1.3); MAGNESIUM - SERUM 1.9 mg/dL (1.8-2.4); PHOSPHOROUS 4.5 mg/dL (2.5-4.9); PROTEIN - SERUM 6.5 g/dL (6.4-8.2)
[2020-12-16 07:56] LABS: WBC 7.1 10x3/uL (4.8-10.8)
[2020-12-16 07:57] LABS: POTASSIUM - SERUM 3.8 mmol/L (3.5-5.1)
[2020-12-16 09:50] LABS: CREATININE - URINE 34.2 mg/dL (30-125); PROTEIN - URINE 1.6 mg/dL (0.0-11.9)
[2020-12-16 10:41] VITALS: BP 105/51
[2020-12-16 10:44] LABS: BACTERIA FEW HPF (NONE SEEN); BILIRUBIN NEGATIVE (NEGATIVE); KETONE NEGATIVE (NEGATIVE); NITRITE NEGATIVE (NEGATIVE); SQUAMOUS EPITHELIAL OCC HPF (0-4); UROBILINOGEN NORMAL mg/dL (< 2); WHITE CELLS - URINE OCC HPF (0-4)
[2020-12-16 13:59] VITALS: Ht 165.1 cm; Wt 77.1 kg
--- NOTE | 2020-12-16 15:00 | NUR ---
I have reviewed this patient and I concur with the Shift Assessment completed by the Licensed Practical Nurse today this shift.
[2020-12-16 15:25] VITALS: BP 110/70
[2020-12-16 18:35] VITALS: BP 115/45
[2020-12-16 20:00] VITALS: BP 96/39
[2020-12-17] VITALS: BP 99/56
[2020-12-17 04:00] VITALS: BP 86/35
--- NOTE | 2020-12-17 05:13 | NUR ---
PATIENT PULLED OUT PIV. NEW 20G PIV PLACED TO LEFT AC, SALINE LOCKED WITH EXCELLENT BLOOD RETURN.
[2020-12-17 06:15] LABS: BASOPHILS 0.1 % (0-2); EOSINOPHILS 1.9 % (0-7); HEMOGLOBIN 10.4 g/dL (12-16); IMMATURE GRANULOCYTES 0.1 % (0-5); LYMPHOCYTE ABS# 1.72 10x3/uL (1.18-3.74); LYMPHOCYTES 22.3 % (15-50); MCH 28.3 pg (26.0-34.0); MCHC 33.5 g/dL (31.0-37.0); MCV 84.5 fL (80.0-100.0); MEAN PLATELET VOLUME 11.5 fL (7.4-10.4); MONOCYTES 6.4 % (2-11); NEUTROPHIL ABS# 5.32 10x3/uL (1.56-6.13); NEUTROPHILS 69.2 % (40-80); PLATELET COUNT 191 10x3/uL (130-400); RBC 3.67 10x6/uL (4.00-5.40); RDW 12.3 % (11.5-14.5); WBC 7.7 10x3/uL (4.8-10.8)
[2020-12-17 06:31] LABS: ALBUMIN 3.4 g/dL (3.4-5.0); ANION GAP 16.7 mmol/L (8-16); BILIRUBIN - TOTAL 0.49 mg/dL (0.2-1.3); CARBON DIOXIDE 20.7 mmol/L (21.0-32.0); CREATININE - SERUM 2.1 mg/dL (0.6-1.3); MAGNESIUM - SERUM 1.8 mg/dL (1.8-2.4); PHOSPHOROUS 4.2 mg/dL (2.5-4.9); POTASSIUM - SERUM 4.4 mmol/L (3.5-5.1); PROTEIN - SERUM 6.2 g/dL (6.4-8.2)
--- NOTE | 2020-12-17 08:48 | EC ---
PATIENT:AD ELDER DATE OF SERVICE: 12/15/20 SEX: F MEDICAL RECORD: [id number] DATE OF : 40 LOCATION:[facility] AGE OF PATIENT: 80 ADMISSION DATE: 12/15/20 REFERRING PHYSICIAN: INTERPRETING PHYSICIAN: SHASHI PEREZ MD ECHOCARDIOGRAM REPORT ECHO CHARGES 4 ECHO COMPLETE Date: 12/16/20 CLINICAL DIAGNOSIS: CAD, HTN ECHOCARDIOGRAPHIC MEASUREMENTS (adult normal given) AC root (d.<3.7cm) 2.6 cm LV Septum d (<1.2 cm> 0.8 cm Valve Excursion 1.4 cm LV Septum (systole) 1.0 cm Left Atria (s.<4.0cm> 4.1 cm LVPW d(<1.2cm) 0.9 cm RV (d.<2.3cm) 2.8 cm LVPW (sytole) 1.5 cm LV diastole(<5.6CM) 4.7 cm MV E-F(>70mm/sec) cm LV systole 3.4 cm LVOT Diameter 1.7 cm MV exc.(>10mm) 1.1 cm Est.ejection fraction (50-75%) % DOPPLER: LVIT cm/sec A 87 cm/sec E 52 cm/sec LA cm/sec RVSP 20 mmHg LVOT 91 cm/sec AOP1/2T m/s Asc. Ao 121 cm/sec RVOT 62 cm/sec RA cm/sec PA 81 cm/sec AV Gradient Peak 5.8 mmHg AV Mean 3.2 mmHg AV Area 1.9 cm MV Gradient Peak 3.4 mmHg MV Mean 1.4 mmHg MV Area cm COMMENTS: Lodging Manager: González NOVOA Air Shovel Operator: 3 Dr. Parker TAPE# Pericardial Effusion N DATE OF SERVICE: Adequate 2D, color-flow imaging, spectral Doppler, and M-Mode. FINDINGS: No LVH. LV internal dimensions are normal. Wall motion is normal. EF is greater than or equal to 55%. Aortic valve is tricuspid. No evidence of stenosis by Doppler interrogation. Left atrium is minimally dilated at 4.1 cm. Mitral valve shows no prolapse. Trace MR. Right side is grossly normal. Trace TR. TRANSINT:[id number] Voice Confirmation ID: [id number] DOCUMENT ID: [id number] ECHOCARDIOGRAM REPORT [id number] AD ELDER,SHASHI Block MD at 0848 CC: [id number] DICTATION DATE: 12/16/20 1315 PM HEAD COOK: 12/16/20 2316 ADM IN [facility] [address] [id number]
[2020-12-17 08:50] VITALS: BP 130/70
--- NOTE | 2020-12-17 13:02 | NUR ---
I have reviewed this patient and I concur with the Shift Assessment completed by the Licensed Practical Nurse today this shift.
[2020-12-17 13:21] VITALS: BP 126/66
[2020-12-17] MEDS ORDERED: NORVASC5 MG PO (14:26)
[2020-12-17] MEDS ORDERED: RANEXA500 MG PO (14:26)
[2020-12-17 17:09] VITALS: BP 137/60
== END 2020-12-17 18:17 | disposition home or self-care (01) ==
LOC: D.ER 17:49 → D.MS 20:19 → OBSVTIME 21:37 → D.MS 12-17 18:17
PROVIDERS: Family Medicine; Internal Medicine Nephrology; ADMIT Family Medicine; ATTEND Family Medicine
DX: R07.9 Chest pain, unspecified (principal); K21.9 Gastro-esophageal reflux disease without esophagitis; I25.10 Atherosclerotic heart disease of native coronary artery without angina pectoris; E78.5 Hyperlipidemia, unspecified; M79.602 Pain in left arm; N18.9 Chronic kidney disease, unspecified; I12.9 Hypertensive chronic kidney disease with stage 1 through stage 4 chronic kidney disease, or unspecified chronic kidney disease; N17.9 Acute kidney failure, unspecified; E87.1 Hypo-osmolality and hyponatremia; D64.9 Anemia, unspecified